=== PATIENT | female | born 1965 | race Two or more races ===

== ENCOUNTER 2023-07-12 13:37 | Observation (INO) | payer BC ==
[2023-07-12] MEDS ORDERED: SODIUM CHLORIDE 0.9% 1,000 ML IV STA (14:04)
[2023-07-12] MEDS ORDERED: ACETAMINOPHEN TAB 325 MG TAB PO PRN (14:12)
[2023-07-12] MEDS ORDERED: NALOXONE 0.4 MG/ML 1 ML VIAL IV PRN (14:12)
--- NOTE | 2023-07-12 14:31 | ED ---
General Adult HPI - General Stated complaint: Abd Pain Time Seen by Provider: 07/12/23 13:50 Source: patient, RN notes reviewed, old records reviewed - History of Present Illness Initial comments: Patient is a 58-year-old female with no significant past medical history who presents emergency Department complaining of right lower quadrant abdominal pain. Was transferred from [facility] for acute appendicitis. Was star kiera on Rocephin there. Patient had a leukocytosis or. Pain started this morning an approximate 4 AM. Right lower quadrant in nature. Some nausea. No diarrhea. No emesis. Has a history of sections in the past. Denies any chest pain or shortness of breath. His no other acute complaints at this time. Patient is requesting Dr. Rondon as her surgeon and she is pulmonology physician today. - Related Data Home Medications Medication Instructions Recorded Confirmed ALPRAZolam [Xanax] 0.5 mg PO HS PRN 07/12/23 07/12/23 Aspirin EC [Ecotrin Low Dose] 81 mg PO DAILY 07/12/23 07/12/23 DULoxetine HCL [Cymbalta] 60 mg PO DAILY 07/12/23 07/12/23 Ezetimibe [Zetia] 10 mg PO DAILY 07/12/23 07/12/23 hydroCHLOROthiazide [Hydrodiuril] 25 mg PO DAILY 07/12/23 07/12/23 Allergies Allergy/AdvReac Type Severity Reaction Status Date / Time adhesive Allergy BLISTERS Verified 07/12/23 14:50 azathioprine [From Imuran] Allergy Shakey Verified 07/12/23 14:50 Penicillins Allergy Rash/Hives/ Verified 07/12/23 14:50 LUCIA Review of Systems ROS Statement: Those systems with pertinent positive or pertinent negative responses have been documented in the HPI. Review of Systems: CONST: Denies fever EYES: Denies blurry vision ENT: Denies nasal congestion C/V: Denies Chest pain RESP: Denies shortness of breath GI: Endorses abdominal pain : Denies dysuria SKIN: Denies rash. MSK: Denies joint pain. NEURO: Denies headache ROS Other: All systems not noted in ROS Statement are negative. Past Medical History Past Medical History: GERD/Reflux, Pneumonia, Respiratory Disorder Additional Past Medical History / Comment(s): 11/05/14 Pt direct admit for diagnosis Rhabdomylosis/ polymyositis. Pt has hx 07/2014 of R VAT with R lower lobe wedge resection. due to persistent SOB. Pt states pathology came back BOOP on that. She follows with Dr. Beltran and it has been noted that her CPK's have been elevating. Last CPK was in the 9,000's per pt. She also has a cough and runny sore nose which Dr. Beltran prescribed an ABX for yesterday but pt has not gotten a chance to fill it yet. She has been on prednisone since July. She has stiff, painful, swollen joints all over her bodey.. She states she is suppose to have a muscle biopsy tomorrow by Dr. Cox because now her doctors think she may had an auto immune dx. Other HX: pinched nerve in back which causes numbness and picking sensation to R leg. History of Any Multi-Drug Resistant Organisms: None Reported Past Surgical History: Section, Orthopedic Surgery, Tonsillectomy Additional Past Surgical History / Comment(s): ORIF RIGHT WRIST. BILATERAL KNEE SCOPES. ESSURE. Past Anesthesia/Blood Transfusion Reactions: No Reported Reaction, Motion Sickness Additional Past Anesthesia/Blood Transfusion Reaction / Comment(s): Pt has never recieved blood. Past Psychological History: No Psychological Hx Reported Additional Psychological History / Comment(s): Pt lives with in home and youngest emi age 22 yrs., Pt is normally independent. She drives a car. 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 Pt walks but feels stiff and painful all over. Past Alcohol Use History: Occasional Past Drug Use History: None Reported - Past Family History Mother Family Medical History: Deep Vein Thrombosis (DVT) Additional Family Medical History / Comment(s): Mother is still living. Back surgery and bilateral knee replacements. Father Family Medical History: COPD, Vascular Disorder Additional Family Medical History / Comment(s): Father was 80 when he . Father was a smoker, CABG, Defibrillator, peripheral vascular surgeries. General Exam - General Exam Comments Initial Comments: General: Appears in no acute distress. HEAD: Normal with no signs of head trauma. EYES: PERRLA, EOMI, conjunctiva normal, no discharge. ENT: Hearing grossly intact, normal oropharynx. RESPIRATORY: Clear breath sounds bilaterally. No wheezes, rales, or rhonchi. C/V: Regular rate and rhythm. S1 and S2 auscultated, no edema, peripheral pulses 2+ and intact throughout ABD: Abdomen is soft, nondistended. Minimally tender to palpation in the right lower quadrant. No guarding. No rebound tenderness. No peritoneal signs. EXT: Normal range of motion, no obvious deformity SKIN: No rashes or lesions observed on exposed skin. NEURO: Alert and oriented 4. Course Vital Signs 07/12/23 07/12/23 07/12/23 13:54 13:55 14:00 Temperature 98.6 F Pulse Rate 83 Respiratory 16 Rate Blood Pressure 124/90 130/79 O2 Sat by Pulse 96 96 96 Oximetry 07/12/23 07/12/23 14:30 15:00 Temperature Pulse Rate 77 Respiratory 16 Rate Blood Pressure 124/90 117/72 O2 Sat by Pulse 96 Oximetry Medical Decision Making - Medical Decision Making Was pt. sent in by a medical professional or institution (, PA, [employer], urgent care, hospital, or penitentiary...) When possible be specific @ -No Did you speak to anyone other than the patient for history (EMS, parent, family, police, friend...)? What history was obtained from this source @ -No Did you review nursing and triage notes (agree or disagree)? Why? @ -I reviewed and agree with nursing and triage notes Were old charts reviewed (outside hosp., previous admission, EMS record, old EKG, old radiological studies, urgent care reports/EKG's, penitentiary records)? Report findings @ -Reviewed transfer charts. Differential Diagnosis (chest pain, altered mental status, abdominal pain women, abdominal pain men, vaginal bleeding, weakness, fever, dyspnea, syncope, headache, dizziness, GI bleed, back pain, seizure, CVA, palpatations, mental health, musculoskeletal)? @ -Differential Abdominal Pain Women: Appendicitis, Cholecystitis, diverticulosis, ischemic bowel, pancreatitis, hepatitis, UTI, gastroenteritis, AAA, incarcerated hernia, bowel obstruction, constipation, inflammatory bowel, hepatitis, peptic ulcer disease, splenic infarction, perforated viscus, vulvitis, ovarian torsion, PID, kidney stone, placenta abruption, this is not meant to be an all-inclusive list EKG interpreted by me (3pts min.). @ -As above X-rays interpreted by me (1pt min.). @ -None done CT interpreted by me (1pt min.). @ -None done U/S interpreted by me (1pt. min.). @ -None done What testing was considered but not performed or refused? (CT, X-rays, U/S, labs)? Why? @ -CT already obtained at [facility] which revealed acute appendicitis that is uncomplicated. What meds were considered but not given or refused? Why? @ -None Did you discuss the management of the patient with other professionals (professionals i.e. DrRl, PA, [employer], lab, RT, psych nurse, psych social worker, gaming host, teacher, telecommunications officer, top case assembler)? Give summary @ -Spoke with Dr. Cox who accepted the admission. Was smoking cessation discussed for >3mins.? @ -No Was critical care preformed (if so, how long)? @ -No Were there social determinants of health that impacted care today? How? (Homelessness, low income, unemployed, alcoholism, drug addiction, transportation, low edu. Level, literacy, decrease access to med. care, fci, rehab)? @ -No Was there de-escalation of care discussed even if they declined (Discuss DNR or withdrawal of care, Hospice)? DNR status @ -No What co-morbidities impacted this encounter? (DM, HTN, Smoking, COPD, CAD, Cancer, CVA, ARF, Chemo, Hep., AIDS, mental health diagnosis, sleep apnea, morbid obesity)? @ -None Was patient admitted / discharged? Hospital course, mention meds given and route, prescriptions, significant lab abnormalities, going to OR and other pertinent info. @ -Based on patient's presentation and physical exam, patient presents with acute appendicitis. Has no acute complaints at this time. I will order as needed pain meds, antiemetics, fluids. Labs at the outside facility revealed a mild leukocytosis and imaging showed the acute uncompensated appendicitis. Patient will be started on cefepime and Flagyl as she does have a penicillin ALLERGY. We'll continue IV fluids. She'll be kept nothing by mouth at this time. She was in agreement this plan. Vital signs of except for limits. Repeat labs will be obtained. I spoke with the on-call surgeon Dr. Cox who was in agreement with the plan and accepted the admission. Repeat labs remarkable for leukocytosis of 17. Undiagnosed new problem with uncertain prognosis? @ -No Drug Therapy requiring intensive monitoring for toxicity (Heparin, Nitro, Insulin, Cardizem)? @ -No Were any procedures done? @ -No Diagnosis/symptom? @ -Appendicitis Acute, or Chronic, or Acute on Chronic? @ -Acute Uncomplicated (without systemic symptoms) or Complicated (systemic symptoms)? @ -Complicated Side effects of treatment? @ -No Exacerbation, Progression, or Severe Exacerbation? @ -No Poses a threat to life or bodily function? How? (Chest pain, USA, ID, pneumonia, PE, COPD, DKA, ARF, appy, cholecystitis, CVA, Diverticulitis, Homicidal, Suicidal, threat to staff... and all critical care pts) @ -Yes - Lab Data Result diagrams: 07/12/23 14:39 07/12/23 14:39 Lab Results 07/12/23 Range/Units 14:04 Blood Type A Positive Blood Type Recheck A Pos Bld Type Recheck Status No Antibody Screen NEGATIVE Spec Expiration Date 07/15/20232303 Disposition Clinical Impression: Appendicitis, acute Disposition: ADMITTED IP TO THIS HOSP Condition: Stable Time of Disposition: 14:20
[2023-07-12 15:15] LABS: Basophils % (A) 0 %; Eosinophils # (A) 0.1 k/uL (0-0.7); Eosinophils % (A) 0 %; HCT 41.7 % (34.0-46.0); HGB 14.3 gm/dL (11.4-16.0); Lymphocytes # (A) 1.5 k/uL (1.0-4.8); Lymphocytes % (A) 9 %; MCH 31.9 pg (25.0-35.0); MCHC 34.3 g/dL (31.0-37.0); MCV 93.2 fL (80.0-100.0); Mean Platelet Volume 9.9; Monocytes # (A) 0.7 k/uL (0-1.0); Monocytes % (A) 4 %; Neutrophils # (A) 14.9 k/uL (1.3-7.7); Neutrophils % (A) 85 %; Platelet Count 226 k/uL (150-450); RBC 4.48 m/uL (3.80-5.40); RDW 13.3 % (11.5-15.5); WBC 17.5 k/uL (3.8-10.6)
[2023-07-12] MEDS: MORPHINE SULFATE 2 MG/ML SYRINGE IVP PRN ×2 (15:28→20:04)
[2023-07-12 15:30] LABS: INR 0.9 (<1.2); Partial Thromboplastin Time 24.7 sec (22.0-30.0); Prothrombin Time 10.3 sec (10.0-12.5)
[2023-07-12 15:40] LABS: ALT 28 U/L (4-34); AST 29 U/L (14-36); African American GFR (CKD) >90 (>60 ml/min/1.73 sqM); Alkaline Phosphatase 60 U/L (38-126); Anion Gap 7 mmol/L; Blood Urea Nitrogen 12 mg/dL (7-17); Carbon Dioxide 32 mmol/L (22-30); Chloride 97 mmol/L (98-107); Glucose 97 mg/dL (74-99); Non-African American GFR(CKD) >90 (>60 ml/min/1.73 sqM); Potassium 3.6 mmol/L (3.5-5.1); Sodium 136 mmol/L (137-145); Total Bilirubin 0.5 mg/dL (0.2-1.3); Total Protein 6.6 g/dL (6.3-8.2)
[2023-07-12] MEDS: metroNIDAZOLE 500 MG TAB PO SCH ×2 (17:23→21:00)
[2023-07-12] MEDS: CEFEPIME 2 GM in SODIUM CHLORIDE 0.9% 100 ML IVPB SCH (17:24)
[2023-07-12] MEDS ORDERED: HYDROmorphone 1 MG/ML 1 ML SYRINGE IVP PRN (18:26)
[2023-07-12] MEDS: HEPARIN SODIUM,PORCINE 5,000 UNIT/ML 1 ML VIAL SQ SCH (19:56)
[2023-07-12] MEDS: ONDANSETRON 4 MG/2 ML VIAL IVP PRN (20:03)
[2023-07-13] MEDS: MORPHINE SULFATE 2 MG/ML SYRINGE IVP PRN ×2 (06:44→10:56)
--- NOTE | 2023-07-13 06:58 | P.GSCN ---
History of Present Illness Consult date: 07/12/23 History of present illness: Patient presents with RLQ pain at 4 am this morning. She went to local ER with findings of appendicitis. She is transfered from [place]. Risks of appendectomy reviewed. Past Medical History Past Medical History: GERD/Reflux, Pneumonia, Respiratory Disorder Additional Past Medical History / Comment(s): 11/05/14 Pt direct admit for diagnosis Rhabdomylosis/ polymyositis. Pt has hx 07/2014 of R VAT with R lower lobe wedge resection. due to persistent SOB. Pt states pathology came back BOOP on that. She follows with Dr. Beltran and it has been noted that her CPK's have been elevating. Last CPK was in the 9,000's per pt. She also has a cough and runny sore nose which Dr. Beltran prescribed an ABX for yesterday but pt has not gotten a chance to fill it yet. She has been on prednisone since July. She has stiff, painful, swollen joints all over her bodey.. She states she is suppose to have a muscle biopsy tomorrow by Dr. Cox because now her doctors think she may had an auto immune dx. Other HX: pinched nerve in back which causes numbness and picking sensation to R leg. History of Any Multi-Drug Resistant Organisms: None Reported Past Surgical History: Section, Orthopedic Surgery, Tonsillectomy Additional Past Surgical History / Comment(s): ORIF RIGHT WRIST. BILATERAL KNEE SCOPES. ESSURE. Past Anesthesia/Blood Transfusion Reactions: No Reported Reaction, Motion Sickness Additional Past Anesthesia/Blood Transfusion Reaction / Comm: Pt has never recieved blood. Past Psychological History: No Psychological Hx Reported Additional Psychological History / Comment(s): Pt lives with in home and youngest emi age 22 yrs., Pt is normally independent. She drives a car. 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 Pt walks but feels stiff and painful all over. Past Alcohol Use History: Occasional Past Drug Use History: None Reported - Past Family History Mother Family Medical History: Deep Vein Thrombosis (DVT) Additional Family Medical History / Comment(s): Mother is still living. Back surgery and bilateral knee replacements. Father Family Medical History: COPD, Vascular Disorder Additional Family Medical History / Comment(s): Father was 80 when he . Father was a smoker, CABG, Defibrillator, peripheral vascular surgeries. Medications and Allergies Home Medications Medication Instructions Recorded Confirmed Type ALPRAZolam [Xanax] 0.5 mg PO HS PRN 07/12/23 07/12/23 History Aspirin EC [Ecotrin Low Dose] 81 mg PO DAILY 07/12/23 07/12/23 History DULoxetine HCL [Cymbalta] 60 mg PO DAILY 07/12/23 07/12/23 History Ezetimibe [Zetia] 10 mg PO DAILY 07/12/23 07/12/23 History hydroCHLOROthiazide [Hydrodiuril] 25 mg PO DAILY 07/12/23 07/12/23 History Allergies Allergy/AdvReac Type Severity Reaction Status Date / Time adhesive Allergy BLISTERS Verified 07/12/23 14:50 azathioprine [From Imuran] Allergy Shakey Verified 07/12/23 14:50 Penicillins Allergy Rash/Hives/ Verified 07/12/23 14:50 LUCIA Surgical - Exam Vital Signs Pulse Ox 96 07/12/23 13:54 Results - Labs 07/12/23 14:39 07/12/23 14:39 Abnormal Lab Results - Last 24 Hours (Table) 07/12/23 07/12/23 Range/Units 14:39 14:39 WBC 17.5 H (3.8-10.6) k/uL Neutrophils # 14.9 H (1.3-7.7) k/uL Sodium 136 L (137-145) mmol/L Chloride 97 L (98-107) mmol/L Carbon Dioxide 32 H (22-30) mmol/L Diabetes panel 07/12/23 Range/Units 14:39 Sodium 136 L (137-145) mmol/L Potassium 3.6 (3.5-5.1) mmol/L Chloride 97 L (98-107) mmol/L Carbon Dioxide 32 H (22-30) mmol/L BUN 12 (7-17) mg/dL Creatinine 0.58 (0.52-1.04) mg/dL Glucose 97 (74-99) mg/dL Calcium 9.0 (8.4-10.2) mg/dL AST 29 (14-36) U/L ALT 28 (4-34) U/L Alkaline Phosphatase 60 (38-126) U/L Total Protein 6.6 (6.3-8.2) g/dL Albumin 4.0 (3.5-5.0) g/dL Calcium panel 07/12/23 Range/Units 14:39 Calcium 9.0 (8.4-10.2) mg/dL Albumin 4.0 (3.5-5.0) g/dL Pituitary panel 07/12/23 Range/Units 14:39 Sodium 136 L (137-145) mmol/L Potassium 3.6 (3.5-5.1) mmol/L Chloride 97 L (98-107) mmol/L Carbon Dioxide 32 H (22-30) mmol/L BUN 12 (7-17) mg/dL Creatinine 0.58 (0.52-1.04) mg/dL Glucose 97 (74-99) mg/dL Calcium 9.0 (8.4-10.2) mg/dL Adrenal panel 07/12/23 Range/Units 14:39 Sodium 136 L (137-145) mmol/L Potassium 3.6 (3.5-5.1) mmol/L Chloride 97 L (98-107) mmol/L Carbon Dioxide 32 H (22-30) mmol/L BUN 12 (7-17) mg/dL Creatinine 0.58 (0.52-1.04) mg/dL Glucose 97 (74-99) mg/dL Calcium 9.0 (8.4-10.2) mg/dL Total Bilirubin 0.5 (0.2-1.3) mg/dL AST 29 (14-36) U/L ALT 28 (4-34) U/L Alkaline Phosphatase 60 (38-126) U/L Total Protein 6.6 (6.3-8.2) g/dL Albumin 4.0 (3.5-5.0) g/dL
[2023-07-13 07:44] LABS: Basophils % (A) 0 %; Eosinophils # (A) 0.1 k/uL (0-0.7); Eosinophils % (A) 0 %; HGB 12.7 gm/dL (11.4-16.0); Lymphocytes # (A) 1.7 k/uL (1.0-4.8); Lymphocytes % (A) 11 %; MCH 31.9 pg (25.0-35.0); MCHC 33.4 g/dL (31.0-37.0); MCV 95.6 fL (80.0-100.0); Mean Platelet Volume 8.9; Monocytes # (A) 1.2 k/uL (0-1.0); Monocytes % (A) 8 %; Neutrophils # (A) 11.8 k/uL (1.3-7.7); Neutrophils % (A) 79 %; Platelet Count 200 k/uL (150-450); RBC 3.97 m/uL (3.80-5.40); RDW 13.1 % (11.5-15.5)
[2023-07-13 08:13] LABS: African American GFR (CKD) >90 (>60 ml/min/1.73 sqM); Anion Gap 10 mmol/L; Blood Urea Nitrogen 11 mg/dL (7-17); Calcium 8.2 mg/dL (8.4-10.2); Carbon Dioxide 23 mmol/L (22-30); Chloride 101 mmol/L (98-107); Glucose 104 mg/dL (74-99); Non-African American GFR(CKD) >90 (>60 ml/min/1.73 sqM); Potassium 3.1 mmol/L (3.5-5.1); Sodium 134 mmol/L (137-145)
[2023-07-13] MEDS: HEPARIN SODIUM,PORCINE 5,000 UNIT/ML 1 ML VIAL SQ SCH (08:26)
[2023-07-13] MEDS: hydroCHLOROthiazide 25 MG TAB PO SCH ×2 (08:34→08:36)
[2023-07-13] MEDS: POTASSIUM CHLORIDE 10 MEQ in WATER FOR INJECTION 1 100ML.BAG IVPB SCH ×4 (08:34→17:31)
[2023-07-13] MEDS: metroNIDAZOLE 500 MG TAB PO SCH ×2 (08:34→18:02)
[2023-07-13] MEDS: CEFEPIME 2 GM in SODIUM CHLORIDE 0.9% 100 ML IVPB SCH ×3 (08:41→17:27)
[2023-07-13] MEDS: ONDANSETRON 4 MG/2 ML VIAL IVP PRN (10:57)
[2023-07-13] MEDS ORDERED: IV FLUID CONTINUATION 1,000 ML IV ONE (13:59)
[2023-07-13] MEDS ORDERED: SCOPOLAMINE 1 MG/72 HR PATCH TRANSDERM ONE (14:09)
[2023-07-13] MEDS ORDERED: POTASSIUM CHLORIDE 20 MEQ/100 ML BAG IVPB ONE (14:21)
[2023-07-13] MEDS ORDERED: SODIUM CHLORIDE 0.9% 100 ML with ceFAZolin 2,000 MG IV ONE ×2 (15:25)
[2023-07-13] MEDS ORDERED: LIDOCAINE 1%-EPI 1:100,000 50 ML VIAL SQ ONE (15:31)
[2023-07-13] MEDS ORDERED: LACTATED RINGERS 1,000 ML IV ONE ×2 (15:34)
[2023-07-13] MEDS ORDERED: KETOROLAC 15 MG/ML 1 ML VIAL IVP SCH (18:00)
[2023-07-13 19:09] VITALS: BP 101/62; PULSE 77; RESP 18; TEMP 97.8
--- NOTE | 2023-07-13 21:40 | P.OP ---
Date of Procedure: 07/13/23 Description of Procedure: SURGEON: KALEIGH ONEIL MD Preoperative Diagnosis: 1. Acute appendicitis 2. Polymyositis 3. Hypertensive heart disease 4 . Depressive disorder 5. Generalized anxiety disorder 6. Bronchiolitis obliterans with organizing pneumonia (BOOP) Postoperative Diagnosis: 1. Acute appendicitis with periappendicitis 2. Polymyositis 3. Hypertensive heart disease 4 . Depressive disorder 5. Generalized anxiety disorder 6. Bronchiolitis obliterans with organizing pneumonia (BOOP) 7. Pelvic adhesions Procedure(s) Performed: 1. Robotic-assisted daVinci Xi laparoscopic lysis of adhesions over 50% of the case 2. Robotic-assisted daVinci Xi laparoscopic appendectomy Anesthesia: GETA, local Estimated Blood Loss (ml): 10 Pathology: other (appendix) Condition: stable Disposition: floor Operative Findings: 1. Acute appendicitis without rupture with periappendicitis 2. Terminal ileum unremarkable 3. Cecum unremarkable 4. Pelvic adhesions due to prior , omentum to abdominal wall INDICATIONS: The patient is a 58-year-old female who presents with acute ap pendicitis. Benefits and risks, including infection, open surgery, and bleeding for additional surgery was discussed at length. Informed consent was obtained. All questions of the patient and family were answered. DESCRIPTION: The patient was transferred to the operating room and placed in supine position. The patient had previously voided. The abdomen was then prepped and draped in standard sterile fashion as Ioban was placed along the abdomen to minimize any contamination of skin floor. After a timeout protocol was performed, attention was then brought to the left upper quadrant whereby a 0 degree 5 mm laparoscopic trocar entry was performed. The abdominal cavity was entered and insufflated to 12 mmHg pressure, which was tolerated well. Diagnostic laparoscopy demonstrated no injury to bowel, viscera or mesentery. Next a robotic 8-mm trocar was placed along the left lower quadrant, 10-cm lateral to the midline. A 12 mm port was placed along the left upper quadrant and another 8-mm port left lateral abdominal wall. Ports were placed 8 cm apart from each other including 15-20 cm away from the target anatomy of the right pelvis. The patient was then placed in Trendelenburg position, at least 14 down and right side up at least 7. The robotic da Vicenta XI system was primed and docked from the left side of the patient. Using atraumatic graspers and vessel sealer, the robotic system was docked and primed as described. Instruments were interchanged by the medical assistant including graspers, robotic stapler and vessel sealer. Moderate lower midline pelvic adhesions, greater omentum to abdominal wall was identified. Lysis of adhesions using vessel sealer was performed for over 50% of the case, greater omentum to abdominal wall. Next, attention was brought to identify the cecum. A systematic view within the abdominal cavity was started with the small bowel which was unremarkable. The base of the cecum was unremarkable. The appendix was retrocecal coursing towards right upper quadrant behind the ascending colon with additional dissection required. The body of the appendix was moderately dilated with moderate periappendicitis. No perforation was identified. The appendix was dissected free from its surrounding tissues. Blue 45 mm robotic staple loads were fired along the base of the appendix. The staple line was hemostatic. Hemostasis was checked prior to undocking the robot. The robot was undocked. I re-scrubbed into the case. The specimen was removed from the abdominal cavity with an Endo Catch bag through the 12 mm trocar at the left upper quadrant. All instruments and pneumoperitoneum were evacuated from the abdominal cavity. Local anesthetic was infiltrated to all wounds for postop analgesia. All incisions were also cleansed with diluted hydrogen peroxide. The incisions were closed with 4-0 Monocryl. Exofin glue was applied to the rest of the skin incisions. The patient had tolerated the procedure well. The patient was extubated successfully. The patient was transferred to the postanesthesia care unit in stable condition.
--- NOTE | 2023-07-13 21:42 | P.DS ---
Providers Date of admission: 07/12/23 14:25 Expected date of discharge: 07/13/23 Attending physician: Valery Cox Primary care physician: Olga Reyes Hospital Course: Postoperative Diagnosis: 1. Acute appendicitis with periappendicitis 2. Polymyositis 3. Hypertensive heart disease 4 . Depressive disorder 5. Generalized anxiety disorder 6. Bronchiolitis obliterans with organizing pneumonia (BOOP) 7. Pelvic adhesions COURSE: Patient is a 58-year-old female presents with right lower quadrant abdominal pain less than 24 hours. Diagnostic studies demonstrated appendicitis. She underwent uncomplicated laparoscopic appendectomy. Discharge instructions were reviewed. Prior to discharge, she was tolerating diet, voiding spontaneously, pain control. Procedures: Procedure(s) Performed: 1. Robotic-assisted daVinci Xi laparoscopic lysis of adhesions over 50% of the case 2. Robotic-assisted daVinci Xi laparoscopic appendectomy Anesthesia: GETA, local Estimated Blood Loss (ml): 10 Pathology: other (appendix) Condition: stable Disposition: floor Operative Findings: 1. Acute appendicitis without rupture with periappendicitis 2. Terminal ileum unremarkable 3. Cecum unremarkable 4. Pelvic adhesions due to prior , omentum to abdominal wall Patient Condition at Discharge: Stable Plan - Discharge Summary Discharge Rx Participant: No New Discharge Prescriptions: New Simethicone [Gas-X] 125 mg PO AC-TID PRN #20 capsule PRN Reason: Pain Ibuprofen [Motrin] 600 mg PO Q8HR PRN #30 tab PRN Reason: Pain Acetaminophen Tab [Tylenol Tab] 1,000 mg PO Q6HR PRN #30 tablet PRN Reason: Pain Continue Aspirin EC [Ecotrin Low Dose] 81 mg PO DAILY ALPRAZolam [Xanax] 0.5 mg PO HS PRN PRN Reason: Anxiety hydroCHLOROthiazide [Hydrodiuril] 25 mg PO DAILY Ezetimibe [Zetia] 10 mg PO DAILY DULoxetine HCL [Cymbalta] 60 mg PO DAILY Discharge Medication List ALPRAZolam [Xanax] 0.5 mg PO HS PRN 07/12/23 [History] Aspirin EC [Ecotrin Low Dose] 81 mg PO DAILY 07/12/23 [History] DULoxetine HCL [Cymbalta] 60 mg PO DAILY 07/12/23 [History] Ezetimibe [Zetia] 10 mg PO DAILY 07/12/23 [History] hydroCHLOROthiazide [Hydrodiuril] 25 mg PO DAILY 07/12/23 [History] Acetaminophen Tab [Tylenol Tab] 1,000 mg PO Q6HR PRN #30 tablet 07/13/23 [Rx] Ibuprofen [Motrin] 600 mg PO Q8HR PRN #30 tab 07/13/23 [Rx] Simethicone [Gas-X] 125 mg PO AC-TID PRN #20 capsule 07/13/23 [Rx] Follow up Appointment(s)/Referral(s): Valery Cox MD [STAFF PHYSICIAN] - 07/18/23 ( TELEHEALTH - DR WILL CALL YOU BETWEEN 8 am to 8 pm ) Olga Reyes MD [Primary Care Provider] - 1-2 days Patient Instructions/Handouts: Laparoscopic Appendectomy (GEN) Activity/Diet/Wound Care/Special Instructions: TELEHEALTH - WILL CALL YOU BETWEEN 8 am to 8 pm No lifting over 10 pounds in 2 weeks until Jul 27January shower. No bath tub soaks for two weeks until Jul 2 Diet as tolerated. Use Tylenol, simethicone and ibuprofen or Aleve scheduled for the next 24-48 hours for best pain relief. Use ice along incisions for today to prevent swelling. Discharge Disposition: HOME SELF-CARE
[2023-07-14] MEDS ORDERED: HYDROmorphone 0.5 MG/0.5 ML SYRINGE IVP PRN (07:00)
== END 2023-07-13 19:51 | disposition home or self-care (01) ==
LOC: EC 13:37 → 1SOBS 14:25 → 4SSUR 07-13 17:01
PROVIDERS: ADMIT Surgery Plastic and Reconstructive Surgery; ATTEND Surgery Plastic and Reconstructive Surgery
DX: K35.80 Unspecified acute appendicitis (principal); K21.9 Gastro-esophageal reflux disease without esophagitis; M33.20 Polymyositis, organ involvement unspecified; I11.9 Hypertensive heart disease without heart failure; F32.A Depression, unspecified; F41.1 Generalized anxiety disorder; J84.89 Other specified interstitial pulmonary diseases; N73.6 Female pelvic peritoneal adhesions (postinfective); Z79.82 Long term (current) use of aspirin; Z79.899 Other long term (current) drug therapy; Z88.0 Allergy status to penicillin
CPT/HCPCS: 44970; 49329; S2900; 80048; 80053; 85025; 85610; 85730; 86850; 86900; 86901; 96361; 96365; 96366; 96367; 96375; 96376; 99285

== ENCOUNTER → 2024-01-23 | Outpatient (CLI) | payer BC ==
--- NOTE | 2024-01-24 09:51 | US ---
EXAMINATION TYPE: US gallbladder DATE OF EXAM: 01/23/2024 COMPARISON: CT 07/12/2023 CLINICAL INDICATION: Female, 58 years old with history of R10.11 RIGHT UPPER QUADRANT PAIN; x few mon ths; Appendectomy in June; Constipation TECHNIQUE: Multiple sonographic images of the right upper quadrant are obtained. FINDINGS: EXAM MEASUREMENTS: Liver Length: 14.1 cm Gallbladder Wall: 0.2 cm CBD: 0.3 cm Right Kidney: 11.1 x 4.0 x 3.9 cm NEUROSURGEON NOTES: Pancreas: wnl Liver: Increased attenuation Gallbladder: wnl Evidence for sonographic Buchanan's sign: No CBD: wnl Right Kidney: wnl IMPRESSION: 1. No acute ultrasound abnormality right upper quadrant.
== END | disposition home or self-care (01) ==
LOC: RADUSWWP 08:15
PROVIDERS: ATTEND Internal Medicine
DX: R10.11 Right upper quadrant pain (principal)
CPT/HCPCS: 76705

== ENCOUNTER 2024-04-17 08:33 | Day surgery (SDC) | payer BC ==
[2024-04-17 08:54] VITALS: TEMP 97
--- NOTE | 2024-04-17 09:00 | P.GSHP ---
History of Present Illness H&P Date: 04/17/24 CHIEF COMPLAINT: Duodenal ulcers HISTORY OF PRESENT ILLNESS: The patient is a 58-year-old female who presents reports duodenal ulcers and gastroesophageal reflux disease. Upper endoscopy was offered for further evaluation and management. PAST MEDICAL HISTORY: Please see list. PAST SURGICAL HISTORY: Please see list. MEDICATIONS: Please see list. ALLERGIES: Please see list. SOCIAL HISTORY: No illicit drug use FAMILY HISTORY: No reports of Crohn disease or ulcerative colitis. REVIEW OF ORGAN SYSTEMS: CONSTITUTIONAL: No reports of fevers or chills. GI: Denies any blood in stools or constipation. PHYSICAL EXAM: VITAL SIGNS: Stable GENERAL: Well-developed and pleasant in no acute distress. HEENT: No scleral icterus. Extraocular movements grossly intact. Moist buccal mucosa. NECK: Supple without lymphadenopathy. CHEST: Unlabored respirations. Equal bilateral excursions. CARDIOVASCULAR: Regular rate and rhythm. Distal 2+ pulses. ABDOMEN: Soft, nondistended. MUSCULOSKELETAL: No clubbing, cyanosis, or edema. ASSESSMENT: 1. Duodenal ulcers 2. Gastroesophageal reflux disease PLAN: 1. 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 hx BOOP lung infection. She follows with Dr. Ruby Landeros of CPK elevation, Last CPK 60s. Other HX: pinched nerve in back which causes numbness and picking sensation to R leg. intermittent mild edema to ankles, upper abd pain. History of Any Multi-Drug Resistant Organisms: None Reported Past Surgical History: Appendectomy, Section, Orthopedic Surgery, Tonsillectomy Additional Past Surgical History / Comment(s): ORIF RIGHT WRIST. BILATERAL KNEE SCOPES. ESSURE. hx muscle bx. lung bx, recent PFT 12/2023, colonoscopy. egd Past Anesthesia/Blood Transfusion Reactions: No Reported Reaction, Motion Sickness Additional Past Anesthesia/Blood Transfusion Reaction / Comment(s): Pt has never received blood. Smoking Status: Former smoker - Past Family History Mother Family Medical History: Deep Vein Thrombosis (DVT) Additional Family Medical History / Comment(s): Mother is still living. Back surgery and bilateral knee replacements. Father Family Medical History: COPD, Vascular Disorder Additional Family Medical History / Comment(s): Father was 80 when he . Father was a smoker, CABG, Defibrillator, peripheral vascular surgeries. Medications and Allergies Home Medications Medication Instructions Recorded Confirmed Type ALPRAZolam [Xanax] 0.5 mg PO HS PRN 07/12/23 04/17/24 History DULoxetine HCL [Cymbalta] 60 mg PO DAILY 07/12/23 04/17/24 History Ezetimibe [Zetia] 10 mg PO DAILY 07/12/23 04/17/24 History hydroCHLOROthiazide [Hydrodiuril] 25 mg PO DAILY 07/12/23 04/17/24 History Unk Calcium 1 tab PO DAILY 04/15/24 04/17/24 History Unk Rituximab 1 bag IV Q365D 04/15/24 04/17/24 History Unk Vitamin C 1 tab PO DAILY 04/15/24 04/17/24 History Unk Vitamin D/Mg+ 1 tab PO DAILY 04/15/24 04/17/24 History Allergies Allergy/AdvReac Type Severity Reaction Status Date / Time adhesive Allergy BLISTERS Verified 04/17/24 08:51 azathioprine [From Imuran] Allergy Shakey Verified 04/17/24 08:51 Penicillins Allergy Rash/Hives/ Verified 04/17/24 08:51 LUCIA Surgical - Exam Vital Signs Temp Pulse Resp BP Pulse Ox 97.0 F L 80 18 130/75 96 04/17/24 08:50 04/17/24 08:50 04/17/24 08:50 04/17/24 08:50 04/17/24 08:50
[2024-04-17] MEDS: LACTATED RINGERS 1,000 ML IV SCH (09:01)
[2024-04-17] MEDS: IV FLUID CONTINUATION 1,000 ML IV ONE (09:03)
[2024-04-17] MEDS ORDERED: LIDOCAINE 1% INJ 10MG/ML (20 ML MDV) ONE (09:24)
[2024-04-17] MEDS ORDERED: PROPOFOL 10 MG/ML 20 ML VIAL IV ONE (09:24)
[2024-04-17 09:50] VITALS: PULSE 76
--- NOTE | 2024-04-17 09:50 | P.HPADDEND ---
H&P Addendum H&P Addendum Date: 04/17/24 Patient reports history of atypical chest pain. Will obtain stat EKG.
--- NOTE | 2024-04-17 10:06 | P.PCN ---
Date of Procedure: 04/17/24 Description of Procedure: PREOPERATIVE DIAGNOSIS: Duodenal ulcer POSTOPERATIVE DIAGNOSIS: Gastroesophageal reflux disease with erosive esophagitis/esophageal ulcer Acute gastric ulcer with bleeding Diaphragmatic hiatal hernia OPERATION: Esophagogastroduodenoscopy with biopsies along esophagus, antrum and duodenum SURGEON: Valery Cox MD ANESTHESIA: MAC. INDICATIONS: The patient is a 58-year-old female who presents with duodenal ulcer benefits and risks of the procedure were described. Informed consent was obtained. DESCRIPTION: The patient was brought into the endoscopy suite and laid in the left lateral decubitus position. An Olympus gastroscope was passed along the posterior oropharynx down to the distal esophagus where the squamocolumnar junction was encountered at 36 cm from the incisors. The stomach was entered and no bile reflux was found. Additional findings are listed below. Biopsies with cold forceps were obtained of the antrum. The first through third portion of the duodenum was examined. Retroflexion of the scope confirmed Hill grade 3 lower esophageal valve. The squamocolumnar junction demonstrated LA grade B erosive esophagitis. The stomach was desufflated. The patient tolerated the procedure well. FINDINGS: Squamocolumnar junction 36 cm from the incisors. Diaphragmatic hiatus at 39 cm. Hiatal hernia, 3 cm Hill grade 4 lower esophageal valve. LA grade C erosive esophagitis. Biopsies obtained of the duodenum. Chronic gastritis with biopsies obtained. RECOMMENDATIONS: Omeprazole 40 mg daily for 2 weeks Plan - Discharge Summary Discharge Rx Participant: No New Discharge Prescriptions: New Omeprazole [PriLOSEC] 40 mg PO DAILY #14 cap Continue ALPRAZolam [Xanax] 0.5 mg PO HS PRN PRN Reason: Anxiety Unk Rituximab 1 bag IV Q365D hydroCHLOROthiazide [Hydrodiuril] 25 mg PO DAILY Ezetimibe [Zetia] 10 mg PO DAILY DULoxetine HCL [Cymbalta] 60 mg PO DAILY Unk Vitamin D/Mg+ 1 tab PO DAILY Unk Vitamin C 1 tab PO DAILY Unk Calcium 1 tab PO DAILY Discharge Medication List ALPRAZolam [Xanax] 0.5 mg PO HS PRN 07/12/23 [History] DULoxetine HCL [Cymbalta] 60 mg PO DAILY 07/12/23 [History] Ezetimibe [Zetia] 10 mg PO DAILY 07/12/23 [History] hydroCHLOROthiazide [Hydrodiuril] 25 mg PO DAILY 07/12/23 [History] Unk Calcium 1 tab PO DAILY 04/15/24 [History] Unk Rituximab 1 bag IV Q365D 04/15/24 [History] Unk Vitamin C 1 tab PO DAILY 04/15/24 [History] Unk Vitamin D/Mg+ 1 tab PO DAILY 04/15/24 [History] Omeprazole [PriLOSEC] 40 mg PO DAILY #14 cap 04/17/24 [Rx] Follow up Appointment(s)/Referral(s): Valery Cox MD [STAFF PHYSICIAN] - 05/14/24 3:00 pm Patient Instructions/Handouts: Peptic Ulcer (ED), Hiatal Hernia (DC), Moderate Sedation (GEN) Discharge Disposition: HOME SELF-CARE
[2024-04-17 10:11] VITALS: BP 137/83; RESP 15
== END 2024-04-17 10:39 | disposition home or self-care (01) ==
LOC: ORWHC2ENDO 08:33
PROVIDERS: ATTEND Surgery Plastic and Reconstructive Surgery
DX: K22.10 Ulcer of esophagus without bleeding (principal); K25.3 Acute gastric ulcer without hemorrhage or perforation; K25.4 Chronic or unspecified gastric ulcer with hemorrhage; J44.9 Chronic obstructive pulmonary disease, unspecified; K44.9 Diaphragmatic hernia without obstruction or gangrene; I73.9 Peripheral vascular disease, unspecified; M33.20 Polymyositis, organ involvement unspecified; E78.5 Hyperlipidemia, unspecified; Z90.49 Acquired absence of other specified parts of digestive tract; Z90.89 Acquired absence of other organs; Z87.891 Personal history of nicotine dependence; Z88.0 Allergy status to penicillin; Z88.8 Allergy status to other drugs, medicaments and biological substances; Z79.899 Other long term (current) drug therapy; Z79.02 Long term (current) use of antithrombotics/antiplatelets
CPT/HCPCS: 88305; 43239; J2001; J2704

== ENCOUNTER → 2024-04-30 | Outpatient (CLI) | payer BC ==
--- NOTE | 2024-06-07 14:20 | NM ---
Patient Kalyn Conde ID [id number] Order # EXAMINATION TYPE: NM hepatobiliary w EF DATE OF EXAM: 05/07/2024 COMPARISON: NONE INDICATION: Right upper quadrant pain TECHNIQUE: After the intravenous administration of 5.08 mCi Tc 99m Mebrofenin hepatobiliary scintigra phy is performed. Images were obtained immediately post injection. FINDINGS: There is prompt uptake and excretion of radiotracer by the liver. Extrahepatic ducts are identified at 2 minutes. The gallbladder is visualized within 2 minutes. Small bowel activity is noted within 50 minutes. At one hour 8 ounces of oral ensure plus is given to mimic CCK and gallbladder ejection fraction is c alculated at 28 %, which is low. (Normal >35% and <80%.). IMPRESSION: 1. Low ejection fraction. Correlate for biliary dyskinesia. 2. No obstruction evident
== END | disposition home or self-care (01) ==
LOC: RADNMMAIN 06:59
PROVIDERS: ATTEND Surgery Plastic and Reconstructive Surgery
DX: R10.11 Right upper quadrant pain (principal)
CPT/HCPCS: 78226; A9537

== ENCOUNTER 2024-05-16 11:30 | Day surgery (SDC) | payer BC ==
[2024-05-16] MEDS ORDERED: LACTATED RINGERS 1,000 ML BAG ONE (11:40)
[2024-05-16] MEDS ORDERED: LIDOCAINE 1% INJ 10MG/ML (20 ML MDV) ONE (11:43)
[2024-05-16] MEDS ORDERED: PROPOFOL 10 MG/ML 20 ML VIAL IV ONE (11:43)
== END 2024-05-16 12:51 ==
LOC: ORWHC2ENDO 11:30
PROVIDERS: ATTEND Surgery Plastic and Reconstructive Surgery
DX: Z12.11 Encounter for screening for malignant neoplasm of colon (principal); Z86.010 Personal history of colon polyps; E78.5 Hyperlipidemia, unspecified; K21.9 Gastro-esophageal reflux disease without esophagitis; Z88.0 Allergy status to penicillin; Z88.8 Allergy status to other drugs, medicaments and biological substances; Z91.09 Other allergy status, other than to drugs and biological substances; Z87.891 Personal history of nicotine dependence; Z79.899 Other long term (current) drug therapy
CPT/HCPCS: 45378

== ENCOUNTER 2024-07-05 09:25 | Day surgery (SDC) | payer BC ==
--- NOTE | 2024-07-05 06:48 | P.GSHP ---
History of Present Illness H&P Date: 07/05/24 CHIEF COMPLAINT: Cholecystitis HISTORY OF PRESENT ILLNESS: The patient is a 59-year-old female who presents with history of epigastric including right upper quadrant abdominal pain. She underwent diagnostic studies for her gallbladder. Separately her clinical picture was consistent with cholecystitis. Now she presents for surgical intervention. PAST MEDICAL HISTORY: Please see list PAST SURGICAL HISTORY: Please see list MEDICATIONS: Please see list ALLERGIES: Please see list SOCIAL HISTORY: Please see list FAMILY HISTORY: Please see list REVIEW OF ORGAN SYSTEMS: CONSTITUTIONAL: No reports of fevers or chills. HEENT: Denies any troubles with the vision or hearing. ENDOCRINE: No reports of hypothyroidism. No diabetes. RESPIRATORY: No recent pneumonias. CARDIOVASCULAR: Denies chest pain or palpitations GI: No blood in stools or constipation. MUSCULOSKELETAL: Has occasional joint pain including back pain. NEURO: No seizure disorders or headaches. No recent stroke. PSYCH: No depression or suicidal ideation. GENITOURINARY: No active blood in urine. No urinary hesitancy. HEMATOLOGIC: No personal or family history of DVTs or pulmonary emboli. SKIN: No skin cancer. PHYSICAL EXAM: VITAL SIGNS: Afebrile vital signs stable GENERAL: Well-developed pleasant in no acute distress. HEENT: No scleral icterus. Extraocular movements grossly intact. Moist buccal mucosa. NECK: Supple without lymphadenopathy. CHEST: Unlabored respirations. Equal bilateral excursions. CARDIOVASCULAR: Regular rate regular rhythm rhythm. Distal 2+ pulses. ABDOMEN: Soft, nondistended. MUSCULOSKELETAL: No clubbing, cyanosis, or edema. NEURO: Cranial nerves II to XII within normal limits. No focal or lateralizing signs. PSYCH: Alert and oriented to person, place and time. SKIN: Well-perfused good skin turgor. ASSESSMENT: 1. Chronic cholecystitis PLAN: 1. Will need a robotic cholecystectomy possible open. Benefits and risks were described. 2. Heparin for DVT prophylaxis 5000 units. 3. Antibiotic prophylaxis. 4. CBC and CMP on day of procedure 5. Non-narcotic pre and post op pain management reviewed. 6. Indocyanine green for biliary imaging. 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 hx BOOP lung infection. She follows with Dr. Ruby Landeros of CPK elevation, Last CPK 60s. Other HX: pinched nerve in back which causes numbness and picking sensation to R leg. intermittent mild edema to ankles, upper abd pain. History of Any Multi-Drug Resistant Organisms: None Reported Past Surgical History: Appendectomy, Section, Orthopedic Surgery, Tonsillectomy, Uterine Ablation Additional Past Surgical History / Comment(s): ORIF RIGHT WRIST. BILATERAL KNEE SCOPES. ESSURE. hx muscle bx. lung bx, recent PFT 12/2023, colonoscopy. egd Past Anesthesia/Blood Transfusion Reactions: No Reported Reaction, Motion Sickness Additional Past Anesthesia/Blood Transfusion Reaction / Comment(s): Pt has never received blood. Smoking Status: Former smoker - Past Family History Mother Family Medical History: Deep Vein Thrombosis (DVT) Additional Family Medical History / Comment(s): Mother is still living. Back surgery and bilateral knee replacements. Father Family Medical History: COPD, Vascular Disorder Additional Family Medical History / Comment(s): Father was 80 when he . Father was a smoker, CABG, Defibrillator, peripheral vascular surgeries. Medications and Allergies Home Medications Medication Instructions Recorded Confirmed Type ALPRAZolam [Xanax] 0.5 mg PO HS PRN 07/12/23 07/02/24 History DULoxetine HCL [Cymbalta] 60 mg PO DAILY 07/12/23 07/02/24 History Ezetimibe [Zetia] 10 mg PO DAILY 07/12/23 07/02/24 History hydroCHLOROthiazide [Hydrodiuril] 25 mg PO DAILY 07/12/23 07/02/24 History Unk Calcium 1 tab PO DAILY 04/15/24 04/17/24 History Unk Rituximab 1 bag IV Q365D 04/15/24 07/02/24 History Unk Vitamin C 1 tab PO DAILY 04/15/24 07/02/24 History Unk Vitamin D/Mg+ 1 tab PO DAILY 04/15/24 07/02/24 History Allergies Allergy/AdvReac Type Severity Reaction Status Date / Time adhesive Allergy BLISTERS Verified 07/02/24 15:13 azathioprine [From Imuran] Allergy Shakey Verified 07/02/24 15:13 Penicillins Allergy Rash/Hives/ Verified 07/02/24 15:13 LUCIA
[~2024-07-05 09:25] MED LIST: INDOCYANINE GREEN 25 MG VIAL IV STA; MIDAZOLAM 2 MG/2 ML VIAL IV PRN
[2024-07-05] MEDS: IV FLUID CONTINUATION 1,000 ML IV ONE (09:46)
[2024-07-05] MEDS: LACTATED RINGERS 1,000 ML IV SCH (10:04)
[2024-07-05] MEDS: ONDANSETRON 4 MG/2 ML VIAL IVP PRN (10:05)
[2024-07-05] MEDS: ACETAMINOPHEN TAB 500 MG TAB PO PRN (10:05)
[2024-07-05] MEDS: HEPARIN SODIUM,PORCINE 5,000 UNIT/ML 1 ML VIAL SQ PRN (10:05)
[2024-07-05 10:17] LABS: Basophils % (A) 0 %; Eosinophils # (A) 0.1 k/uL (0-0.7); Eosinophils % (A) 1 %; HGB 15.6 gm/dL (11.4-16.0); Lymphocytes # (A) 2.3 k/uL (1.0-4.8); Lymphocytes % (A) 30 %; MCH 31.6 pg (25.0-35.0); MCV 92.9 fL (80.0-100.0); Mean Platelet Volume 9.6; Monocytes # (A) 0.6 k/uL (0-1.0); Monocytes % (A) 8 %; Neutrophils # (A) 4.3 k/uL (1.3-7.7); Neutrophils % (A) 56 %; Platelet Count 277 k/uL (150-450); RBC 4.95 m/uL (3.80-5.40); RDW 13.2 % (11.5-15.5); WBC 7.6 k/uL (3.8-10.6)
[2024-07-05 10:27] LABS: ALT 23 U/L (4-34); AST 28 U/L (14-36); African American GFR (CKD) >90 (>60 ml/min/1.73 sqM); Albumin 4.6 g/dL (3.5-5.0); Alkaline Phosphatase 69 U/L (38-126); Anion Gap 6 mmol/L; Blood Urea Nitrogen 14 mg/dL (7-17); Calcium 9.7 mg/dL (8.4-10.2); Carbon Dioxide 27 mmol/L (22-30); Chloride 107 mmol/L (98-107); Glucose 93 mg/dL (74-99); Non-African American GFR(CKD) 85 (>60 ml/min/1.73 sqM); Sodium 140 mmol/L (137-145); Total Bilirubin 0.7 mg/dL (0.2-1.3); Total Protein 7.1 g/dL (6.3-8.2)
[2024-07-05] MEDS ORDERED: fentaNYL (PF) 50 MCG/ML 2 ML AMP ONE (11:16)
[2024-07-05] MEDS ORDERED: PHENYLEPHRINE-0.9% NACL SYG 1,000 MCG/10 ML SYRINGE ONE (11:16)
[2024-07-05] MEDS ORDERED: GLYCOPYRROLATE 0.2 MG/ML 2 ML VIAL ONE (11:16)
[2024-07-05] MEDS ORDERED: PROPOFOL 10 MG/ML 20 ML VIAL IV ONE (11:16)
[2024-07-05] MEDS ORDERED: MIDAZOLAM 2 MG/2 ML VIAL ONE (11:16)
[2024-07-05] MEDS ORDERED: LIDOCAINE 1% INJ 10MG/ML (20 ML MDV) ONE (11:16)
[2024-07-05] MEDS ORDERED: SUGAMMADEX SODIUM 200 MG/2 ML SDV IV ONE (11:16)
[2024-07-05] MEDS ORDERED: ROCURONIUM 10 MG/ML (5 ML VIAL) IV ONE (11:16)
[2024-07-05] MEDS ORDERED: NEOSTIGMINE 1 MG/ML 10 ML VIAL ONE (11:16)
[2024-07-05] MEDS: LIDOCAINE 1%-EPI 1:100,000 20 ML VIAL SQ ONE ×2 (11:43→11:49)
[2024-07-05 12:55] VITALS: TEMP 97
[2024-07-05] MEDS: HYDROmorphone 0.5 MG/0.5 ML SYRINGE IVP PRN (13:07)
--- NOTE | 2024-07-05 13:40 | P.OP ---
Date of Procedure: 07/05/24 Description of Procedure: SURGEON: VALERY COX MD PREOPERATIVE DIAGNOSES: 1. Chronic cholecystitis 2. Right upper quadrant abdominal pain 3. Hypertensive heart disease 4. Generalized anxiety disorder 5. Depressive disorder 6. 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 Chronic cholecystitis 2. Right upper quadrant abdominal pain due to cholecystitis 3. Hypertensive heart disease 4. Generalized anxiety disorder 5. Depressive disorder 6. 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 Pericholecystic adhesions 8. Intra-abdominal adhesions OPERATION: 1. Robotic-assisted da Vicenta Xi laparoscopic lysis of adhesions 2. Robotic-assisted da Vicenta Xi laparoscopic cholecystectomy, multiport with FIREFLY ESTIMATED BLOOD LOSS: 5 mL. SPECIMENS REMOVED: Gallbladder. COMPLICATIONS: None. OPERATIVE FINDINGS: 1. Moderate scarring over entire gallbladder with peritoneal adhesions, pericholecystic with features of chronic cholecystitis 2. Moderate lower abdominal/pelvic adhesions INDICATIONS: The patient is a 59-year-old female who presents with right upper quadrant abdominal pain including chronic cholecystitis. Robotic assisted laparoscopic approach was described. Benefits and risks of the procedure including but not limited to bleeding, infection, injury to the biliary tree was described. Informed consent was obtained. DESCRIPTION OF PROCEDURE: Patient was brought to the operating room, placed in supine position. After general induction, the abdomen had been prepped and draped in standard sterile fashion. The robotic da Vicenta XI system was primed. After a timeout protocol was performed, the patient had been prepped and draped in standard sterile fashion. The patient was injected with indocyanine green. A 5 mm 0 degrees laparoscopic trocar entry was performed along the left upper quadrant. The abdomen insufflated to 15 mmHg pressure which was tolerated well. Diagnostic laparoscopy demonstrated no injury to bowel viscera or mesentery. The liver surface was unremarkable. Next, two 8 mm robotic ports were placed along the right upper abdomen. The camera 8-mm port was maintained along the epigastrium. Another 8 mm port was placed along the left upper abdominal wall after exchanging the 5 mm port. Please note that the ports were placed at least 10 to 15 cm away from the target anatomy of the gallbladder. The robot was docked along the left lateral abdomen. The patient was repositioned in reverse Trendelenburg position. Using a grasper for arm 3, a grasper for arm 4, including hook cautery for arm 1, the robotic system was docked and primed as described. Instruments were interchanged by the golf course assistant including hook cautery, Bovie cautery and clip appliers. I had sat at the console. The gallbladder was scarred with peritoneal adhesions. Lysis of adhesions was performed to free the gallbladder from the surrounding tissues. Next attention was brought to the infundibulum and cystic structures. The infundibulum and cystic duct were dissected free from surrounding tissues. The cystic duct was isolated. FIREFLY was used to identify the cystic artery and cystic structures. A critical view of safety was obtained. Large PLASTIC clips were used throughout the entire case. Using a clip silk weaver, 3 clips were placed at the junction of the infundibulum and cystic duct. The cystic duct was divided between clips. Next, the cystic artery was cauterized. Electro-Bovie cautery was used to remove the gallbladder from the hepatic fossa. Hemostasis was checked and found to be adequate. The robot was undocked. I re-scrubbed into the case. Using a 10 mm Endo Catch bag via the left upper quadrant incision, the specimen was removed from the abdominal cavity. All pneumoperitoneum instruments were evacuated from the abdominal cavity. The incisions were reapproximated using 4-0 Monocryl in an interrupted subcuticular fashion. Fascial defects were less than 8 mm in size. Please note along the trocar sites, local anesthetic was placed as a field block prior to insertion of all instruments. Liquid glue was applied to the skin. At the end of the procedure needle, sponge, and instrument count had been verified correct by the nursing surgical services director. The patient was transferred to postanesthesia care unit in stable condition. Intraoperative films were shared with the patient's family. Plan - Discharge Summary Discharge Rx Participant: No New Discharge Prescriptions: New Acetaminophen Tab [Tylenol Tab] 1,000 mg PO Q6HR PRN #30 tablet PRN Reason: Pain Simethicone [Gas-X] 125 mg PO AC-TID PRN #20 capsule PRN Reason: Pain Ibuprofen [Motrin] 600 mg PO Q8HR PRN #30 tab PRN Reason: Pain Continue ALPRAZolam [Xanax] 0.5 mg PO HS PRN PRN Reason: Anxiety Unk Rituximab 1 bag IV Q365D hydroCHLOROthiazide [Hydrodiuril] 25 mg PO DAILY Ezetimibe [Zetia] 10 mg PO DAILY DULoxetine HCL [Cymbalta] 60 mg PO DAILY Unk Vitamin D/Mg+ 1 tab PO DAILY Unk Vitamin C 1 tab PO DAILY Unk Calcium 1 tab PO DAILY Discharge Medication List ALPRAZolam [Xanax] 0.5 mg PO HS PRN 07/12/23 [History] DULoxetine HCL [Cymbalta] 60 mg PO DAILY 07/12/23 [History] Ezetimibe [Zetia] 10 mg PO DAILY 07/12/23 [History] hydroCHLOROthiazide [Hydrodiuril] 25 mg PO DAILY 07/12/23 [History] Unk Calcium 1 tab PO DAILY 04/15/24 [History] Unk Rituximab 1 bag IV Q365D 04/15/24 [History] Unk Vitamin C 1 tab PO DAILY 04/15/24 [History] Unk Vitamin D/Mg+ 1 tab PO DAILY 04/15/24 [History] Acetaminophen Tab [Tylenol Tab] 1,000 mg PO Q6HR PRN #30 tablet 07/05/24 [Rx] Ibuprofen [Motrin] 600 mg PO Q8HR PRN #30 tab 07/05/24 [Rx] Simethicone [Gas-X] 125 mg PO AC-TID PRN #20 capsule 07/05/24 [Rx] Follow up Appointment(s)/Referral(s): Valery Cox MD [STAFF PHYSICIAN] - 07/09/24 6:25 pm (TELEHEALTH - DR CALLS YOU) Patient Instructions/Handouts: *Surgery [facility] - Managing Your Pain After Surgery Without Opioids, Low Fat Diet (ED), Laparoscopic Cholecystectomy (DC), Deep Vein Thrombosis Prevention (GEN) Activity/Diet/Wound Care/Special Instructions: TELEHEALTH - DR WILL CALL YOU BETWEEN 9 am to 8 pm NO LONG DRIVES OR AIRPLANE RIDES OVER 60 MINUTES FOR THE NEXT 2 WEEKS, 07/19/24, DUE TO HIGH RISK OF PULMONARY EMBOLISM/DVTs May drive in 72 hrs, 07/08/24 Recommend low-fat diet for the next 2 days. No lifting over 10 pounds in 2 weeks until 07/19/24, May shower. No bath tub soaks for two weeks until 07/19/24, Diet as tolerated. Use Tylenol, simethicone and ibuprofen or Aleve scheduled for the next 24-48 hours for best pain relief. Use ice along incisions for today to prevent swelling. Discharge Disposition: HOME SELF-CARE
[2024-07-05 14:00] VITALS: RESP 16
[2024-07-05 14:43] VITALS: BP 117/71; PULSE 72
--- NOTE | 2024-07-05 16:53 | P.PN ---
Progress Note - Text Progress Note Date: 07/05/24 Notified by PACU phase 2 that patient had inability to urinate/void. Anesthesia team was notified who had requested patient to have straight cath. Patient has altered anatomy due to prior chemoradiation of the pelvis. Bladder scan 200 cc noted. Patient reports she wanted to go home. After being notified of the above, Flomax prescribed for now including for home. Patient was given option for overnight stay/observation however patient wanted to go home. Patient may return to the emergency room should she have inability to void.
== END 2024-07-05 15:14 | disposition home or self-care (01) ==
LOC: OR 09:25
PROVIDERS: ATTEND Surgery Plastic and Reconstructive Surgery
CPT/HCPCS: 47563; 80053; 85025; 88304; S2900